=== PATIENT | female | born 1965 | race Two or more races ===

== ENCOUNTER 2023-03-14 15:28 | Emergency (ER) | payer OTHER, SELFPAY ==
[2023-03-14 15:36] VITALS: BP 178/105; PULSE 93; RESP 18; TEMP 36.8; O2SAT 94; BMI 35.0
[2023-03-14] MEDS: ONDANSETRON PF 4 MG/2 ML VIAL IV (15:56)
[2023-03-14] MEDS: MORPHINE SULFATE 4 MG/ML VIAL IV (15:56)
[2023-03-14 15:59] LABS: Basophils Absolute Auto 0.1 10^3/uL (0.0-0.1); Basophils Percent Auto 0.5 % (0.2-2.0); Eosinophils Percent Auto 0.3 % (0.9-7.0); Hemoglobin 12.7 g/dL (12.0-16.0); Immature Granulocytes Abs Auto 0.03 10^3/uL (0.00-0.03); Immature Granulocytes Pct Auto 0.2 % (0.0-0.5); Lymphocytes Absolute Auto 2.7 10^3/uL (1.2-3.8); Lymphocytes Percent Auto 21.1 % (20.5-60.0); Mean Corpuscular HGB Conc 32.6 g/dL (29.9-35.2); Mean Corpuscular Hemoglobin 30.2 pg (26.7-34.0); Mean Corpuscular Volume 92.9 fL (81.0-99.0); Mean Platelet Volume 9.9 fL (9.5-13.5); Monocytes Absolute Auto 1.1 10^3/uL (0.3-0.8); Monocytes Percent Auto 8.8 % (1.7-12.0); Neutrophils Absolute Auto 8.7 10^3/uL (1.4-6.5); Neutrophils Percent Auto 69.1 % (43.0-75.0); Platelet Count 287 10^3/uL (150-450); Red Cell Distribution Width 13.5 % (11.0-15.0); White Blood Count 12.6 10^3/uL (4.0-11.0)
[2023-03-14 16:06] LABS: Anion Gap 10.8; BUN Creatinine Ratio 11.1; Calcium 8.7 mg/dL (8.5-10.1); Carbon Dioxide 26.5 mmol/L (21.0-32.0); Chloride 100 mmol/L (98-107); Estimated GFR (African America >60 (>=60); Estimated GFR (Non-African Ame >60 (>=60); Glucose 106 mg/dL (74-106); Potassium 3.3 mmol/L (3.5-5.1); Sodium 134 mmol/L (136-145)
[2023-03-14 16:12] LABS: Bilirubin Urine NEGATIVE (NEGATIVE); Blood Urine MODERATE (NEGATIVE); Clarity Urine CLEAR (CLEAR); Color Urine LT. YELLOW (YELLOW); Glucose Urine UA NEGATIVE (NEGATIVE); Ketones Urine NEGATIVE (NEGATIVE); Leukocyte Esterase Urine NEGATIVE (NEGATIVE); Nitrite Urine NEGATIVE (NEGATIVE); Protein Urine NEGATIVE (NEG/TRACE); Specific Gravity Urine <=1.005 (1.005-1.025); Urobilinogen Urine 0.2 EU/dL (0.2-1.0); pH Urine 6.5 (5.0-9.0)
[2023-03-14 16:13] VITALS: BP 150/94; PULSE 86; RESP 16; O2SAT 98
--- NOTE | 2023-03-14 16:16 | CT_ITS ---
The [address] [address] Patient Name: RHIANNON LACKEY MRN: [id number] date: 1965 Sex: F Assigned Patient Location: ER Current Patient Location: Accession/Order Number: [id number] Exam Date: 03/14/2023 16:27 Report Date: 03/14/2023 17:19 At the request of: CRYSTAL FLANAGAN Procedure: CT abdomen pelvis wo con EXAM: CT abdomen pelvis wo con HISTORY: Right flank pain, r/o stone. COMPARISON: None. TECHNIQUE: Unenhanced helical acquisition obtained through the abdomen and the pelvis. FINDINGS: Calcifications noted within the included LAD coronary artery. Mild bibasilar atelectasis. The pleural spaces are clear. Unremarkable gallbladder. Allowing for the lack of intravenous contrast, the liver, spleen, pancreas and the adrenal glands are unremarkable. Heterogeneous lesion centrally within the left renal sinus measuring approximately 5.1 x 5.1 x 3.4 cm, which may be secondary to a complex parapelvic cyst or may be secondary to a solid mass. Within the superomedial right renal cortex there is an area of coarse calcifications maximally measuring 1.7 cm in diameter. No renal or ureteral calculi are identified. Calcified phleboliths within the pelvis. Moderate diffuse atherosclerotic disease. No enlarged lymph nodes within the abdomen or the pelvis. No ascites or focal intraperitoneal fluid collections. Normal appendix. Diverticulosis without radiographic evidence of diverticulitis. Moderate-severe facet arthropathy at L4-L5 with associated grade [address]/CT abdomen pelvis wo con IMPRESSION: 1. No renal or ureteral calculi. 2. A 1.7 cm partially calcified lesion within the superomedial right renal cortex which is not well assessed on this unenhanced study. A 5.1 cm heterogeneous lesion centrally within the left kidney, which may be a complex parapelvic cyst versus a solid mass. Follow-up dedicated MRI of the kidneys without and with contrast is recommended. 3. Diverticulosis without radiographic evidence of diverticulitis. 4. Grade 1 degenerative anterolisthesis of L4 on L5. Electronically authenticated by: MORIS BELLA Date: 03/14/2023 17:19
[2023-03-14 16:18] VITALS: O2SAT 88; O2SAT 95
[2023-03-14 16:19] LABS: Bacteria Urine NONE SEEN #/HPF (NONE SEEN); Cast Seen? NONE SEEN #/LPF (NONE SEEN); Crystals Seen? None Seen #/HPF (None Seen); Mucus Urine NONE SEEN (NONE SEEN); RBC Urine NONE SEEN #/HPF (0-2); Squamous Epithelial Cell Urine RARE #/LPF (NONE/RARE); WBC Urine NONE SEEN #/HPF (NONE SEEN)
--- NOTE | 2023-03-14 17:12 | ED_ITS ---
HPI - General Adult General Chief complaint: Abdominal Pain Stated complaint: Flank Pain Time Seen by Provider: 03/14/23 15:45 Source: patient Mode of arrival: walk-in Limitations: no limitations History of Present Illness HPI narrative: 57-year-old female presents for pain to her right lower back. There has been no injury or dysuria or hematuria. She had a kidney stone many years ago but she states this feels like a muscle spasm. Vomiting. The pain is moderate and continuous. Related Data Previous Rx's Medication Instructions Recorded cyclobenzaprine 10 mg tablet 10 mg PO TID PRN muscle spasm #20 03/14/23 tabs hydrocodone 5 mg-acetaminophen 325 1 tab PO Q6H PRN pain 5 days #20 03/14/23 mg tablet tabs Allergies Allergy/AdvReac Type Severity Reaction Status Date / Time No Known Drug Allergies Allergy Verified 03/14/23 15:40 Review of Systems ROS Narrative A ten point review of systems is negative except as noted above. Exam Narrative Exam Narrative: Nurses note and vital signs reviewed and patient is not hypoxic. General: The patient appears mildly uncomfortable. Skin: Warm, dry, no pallor noted. There is no rash noted. Head: Normocephalic, atraumatic Eye: Normal conjunctiva, no drainage Ears, Nose, Mouth, and Throat: oral mucosa is moist. Nares patent. Cardiovascular: Regular Rate and Rhythm Respiratory: Patient is in no distress, no accessory muscle use, lungs are clear to auscultation, no wheezing, rales or rhonchi Back: non-tender, no CVA tenderness bilaterally to percussion, no bruise or rash. GI: soft and nontender Musculoskeletal: The patient has no evidence of calf tenderness, no pitting edema, symmetrical pulses noted bilaterally Neurological: A&O, normal speech Psychiatric: Cooperative Constitutional Vital Signs, click to edit/add: Last Vital Signs Temp 98.3 F 03/14/23 15:36 Pulse 86 03/14/23 17:20 Resp 18 03/14/23 17:20 BP 151/98 H 03/14/23 17:20 Pulse Ox 96 03/14/23 17:20 O2 Del Method Nasal Cannula 03/14/23 17:20 O2 Flow Rate 2 03/14/23 17:20 Course Vital Signs Vital signs: Vital Signs Temperature 98.3 F 03/14/23 15:36 Pulse Rate 93 H 03/14/23 15:36 Respiratory Rate 18 03/14/23 15:36 Blood Pressure 178/105 H 03/14/23 15:36 Pulse Oximetry 94 L 03/14/23 15:36 Oxygen Delivery Method Room Air 03/14/23 15:36 Temperature 98.3 F 03/14/23 15:36 Pulse Rate 86 03/14/23 17:20 Respiratory Rate 18 03/14/23 17:20 Blood Pressure 151/98 H 03/14/23 17:20 Pulse Oximetry 96 03/14/23 17:20 Oxygen Delivery Method Nasal Cannula 03/14/23 17:20 Oxygen Delivery Flow Rate 2 03/14/23 17:20 Medical Decision Making MDM Narrative Medical decision making narrative: CAT scan findings are discussed with patient and she'll follow-up with urology. Treatment diagnosis and follow-up were discussed with the patient. Differential Diagnosis Differential Diagnosis: kidney stone, urinary tract infection Lab Data Lab results reviewed: Yes I reviewed the patient's lab results Labs: Lab Results 03/14/23 03/14/23 Range/Units 15:49 15:58 WBC 12.6 H (4.0-11.0) 10^3/uL RBC 4.20 (4.20-5.40) 10^6/uL Hgb 12.7 (12.0-16.0) g/dL Hct 39.0 (36.0-48.0) % MCV 92.9 (81.0-99.0) fL MCH 30.2 (26.7-34.0) pg MCHC 32.6 (29.9-35.2) g/dL RDW 13.5 (11.0-15.0) % Plt Count 287 (150-450) 10^3/uL MPV 9.9 (9.5-13.5) fL Neut % (Auto) 69.1 (43.0-75.0) % Lymph % (Auto) 21.1 (20.5-60.0) % [place] % (Auto) 8.8 (1.7-12.0) % Eos % (Auto) 0.3 L (0.9-7.0) % Baso % (Auto) 0.5 (0.2-2.0) % Neut # (Auto) 8.7 H (1.4-6.5) 10^3/uL Lymph # (Auto) 2.7 (1.2-3.8) 10^3/uL [place] # (Auto) 1.1 H (0.3-0.8) 10^3/uL Eos # (Auto) 0.0 (0.0-0.7) 10^3/uL Baso # (Auto) 0.1 (0.0-0.1) 10^3/uL Abs Immat Gran (auto) 0.03 (0.00-0.03) 10^3/uL Imm/Tot Granulo (auto) 0.2 (0.0-0.5) % Sodium 134 L (136-145) mmol/L Potassium 3.3 L (3.5-5.1) mmol/L Chloride 100 (98-107) mmol/L Carbon Dioxide 26.5 (21.0-32.0) mmol/L Anion Gap 10.8 BUN 9.0 (7.0-18.0) mg/dL Creatinine 0.81 (0.55-1.02) mg/dL Est GFR ( Amer) >60 (>=60) Est GFR (Non-Af Amer) >60 (>=60) BUN/Creatinine Ratio 11.1 Glucose 106 (74-106) mg/dL Calcium 8.7 (8.5-10.1) mg/dL Urine Color Lt. yellow (YELLOW) Urine Clarity Clear (CLEAR) Urine pH 6.5 (5.0-9.0) Ur Specific [place] <=1.005 A (1.005-1.025) Urine Protein Negative (NEG/TRACE) mg/dL Urine Glucose (UA) Negative (NEGATIVE) mg/dL Urine Ketones Negative (NEGATIVE) mg/dL Urine Occult Blood Moderate A (NEGATIVE) Urine Nitrite Negative (NEGATIVE) Urine Bilirubin Negative (NEGATIVE) Urine Urobilinogen 0.2 (0.2-1.0) EU/dL Ur Leukocyte Esterase Negative (NEGATIVE) Urine RBC None seen (0-2) #/HPF Urine WBC None seen (NONE SEEN) #/HPF Ur Squamous Epith Cells Rare (NONE/RARE) #/LPF Urine Crystals None seen (None Seen) #/HPF Urine Bacteria None seen (NONE SEEN) #/HPF Urine Casts None seen (NONE SEEN) #/LPF Urine Mucus None seen (NONE SEEN) Imaging Data CT scan - abdomen: Radiologist's impression: Procedure: CT abdomen pelvis wo con EXAM: CT abdomen pelvis wo con HISTORY: Right flank pain, r/o stone. COMPARISON: None. TECHNIQUE: Unenhanced helical acquisition obtained through the abdomen and the pelvis. FINDINGS: Calcifications noted within the included LAD coronary artery. Mild bibasilar atelectasis. The pleural spaces are clear. Unremarkable gallbladder. Allowing for the lack of intravenous contrast, the liver, spleen, pancreas and the adrenal glands are unremarkable. Heterogeneous lesion centrally within the left renal sinus measuring approximately 5.1 x 5.1 x 3.4 cm, which may be secondary to a complex parapelvic cyst or may be secondary to a solid mass. Within the superomedial right renal cortex there is an area of coarse calcifications maximally measuring 1.7 cm in diameter. No renal or ureteral calculi are identified. Calcified phleboliths within the pelvis. Moderate diffuse atherosclerotic disease. No enlarged lymph nodes within the abdomen or the pelvis. No ascites or focal intraperitoneal fluid collections. Normal appendix. Diverticulosis without radiographic evidence of diverticulitis. Moderate-severe facet arthropathy at L4-L5 with associated grade 1 anterolisthesis. IMPRESSION: 1. No renal or ureteral calculi. 2. A 1.7 cm partially calcified lesion within the superomedial right renal cortex which is not well assessed on this unenhanced study. A 5.1 cm heterogeneous lesion centrally within the left kidney, which may be a complex parapelvic cyst versus a solid mass. Follow-up dedicated MRI of the kidneys without and with contrast is recommended. 3. Diverticulosis without radiographic evidence of diverticulitis. 4. Grade 1 degenerative anterolisthesis of L4 on L5. Electronically authenticated by: MORIS BELLA Date: 03/14/2023 17:19 Discharge Plan Discharge Chief Complaint: Abdominal Pain Clinical Impression: Acute flank pain Patient Disposition: Home, Self-Care Time of Disposition Decision: 17:28 Mode of Transportation: Private Vehicle Prescriptions / Home Meds: New cyclobenzaprine 10 mg tablet 10 mg PO TID PRN (Reason: muscle spasm) Qty: 20 0RF hydrocodone-acetaminophen 5-325 mg tablet 1 tab PO Q6H PRN (Reason: pain) 5 Days Qty: 20 0RF Instructions: Flank Pain (ED) Additional Instructions: Follow-up with Dr. Vitale. Stand Alone Forms: Portal Instructions Referrals: Andra Talley [Primary Care Provider] - 1 week
[2023-03-14] MEDS: KETOROLAC TROMETHAMINE 30 MG/ML VIAL IVP (17:14)
[2023-03-14 17:20] VITALS: BP 151/98; PULSE 86; RESP 18; O2SAT 96
== END 2023-03-14 17:42 | disposition home or self-care (01) ==
PROVIDERS: Emergency Provider Emergency Medicine
DX: R10.9 Unspecified abdominal pain (principal); Z87.442 Personal history of urinary calculi; K57.30 Diverticulosis of large intestine without perforation or abscess without bleeding
CPT/HCPCS: 36415; 74176; 80048; 81001; 85025; 96374; 96375; 99285